=== PATIENT | male | born 1985 | race Two or more races ===

== ENCOUNTER → 2025-03-24 | Outpatient (CLI) | payer MEDICAID, SELFPAY ==
--- NOTE | 2025-03-24 09:52 | XR_ITS ---
Examination: PA lateral chest 2 views TECHNIQUE: Upright PA lateral chest 2 views Date and time: March 24, 2025 1023 hours INDICATIONS: Chest pain shortness of breath beginning 2 months ago. FINDINGS: Normal heart size. Lungs are clear Osseous structures intact IMPRESSION: No active disease
== END | disposition home or self-care (01) ==
LOC: CDIM 09:23
PROVIDERS: PCP Nurse Practitioner Family; Referring Provider Nurse Practitioner Family; Visit Provider Nurse Practitioner Family
DX: R07.9 Chest pain, unspecified (principal)
CPT/HCPCS: 71046